=== PATIENT | male | born 1975 | race Caucasian/White ===

== ENCOUNTER 2016-09-18 14:32 | Emergency (ER) | payer BC ==
[~2016-09-18 14:32] MED LIST: ATORVASTATIN CA40 MG PO; GLUCOPHAGE1000 MG PO; PRILOSEC40 MG PO; PRINIVIL10 MG PO; ROXICODONE15 MG PO
== END 2016-09-18 16:00 | disposition home or self-care (01) ==
LOC: ER 14:32
DX: M77.9 Enthesopathy, unspecified (principal); I10 Essential (primary) hypertension
CPT/HCPCS: 36415; 96372; J1885